=== PATIENT | male | born 1980 | race Caucasian/White ===

== ENCOUNTER 2017-09-28 18:54 | Emergency (ER) | payer MEDICAID ==
[~2017-09-28] VITALS: Ht 180.3 cm; Wt 127.0 kg
[2017-09-28 19:25] VITALS: Ht 180.3 cm; Wt 127.0 kg
[2017-09-28] MEDS ORDERED: BACLOFEN10 MG PO (19:26)
[2017-09-28] MEDS ORDERED: PERCOCET 10/3251 TA1 PO (19:27)
[2017-09-28 19:44] LABS: APPEARANCE CLEAR (CLEAR); BILIRUBIN 1+ (NEGATIVE); COLOR YELLOW (YELLOW); GLUCOSE NEGATIVE (NEGATIVE); KETONE NEGATIVE (NEGATIVE); NITRITE NEGATIVE (NEGATIVE); PROTEIN NEGATIVE (NEGATIVE); SPECIFIC GRAVITY 1.015 (1.005-1.020)
[2017-09-28 19:46] LABS: RED CELLS - URINE 0-5 /hpf (0-5); WHITE CELLS - URINE 0-5 /hpf (0-5)
[2017-09-28 19:47] LABS: BACTERIA FEW /hpf (NONE SEEN)
[2017-09-28 20:16] LABS: BASOPHILS 0.6 % (0-2); EOSINOPHILS 3.1 % (0-7); HEMATOCRIT 42.5 % (42.0-54.0); HEMOGLOBIN 14.4 g/dL (13.5-17.5); IMMATURE GRANULOCYTES 0.1 % (0-5); LYMPHOCYTES 27.5 % (15-50); MCH 29.4 pg (26.0-34.0); MCHC 33.9 g/dL (31.0-37.0); MCV 86.9 fL (80.0-100.0); MEAN PLATELET VOLUME 9.6 fL (7.4-10.4); MONOCYTES 7.2 % (2-11); NEUTROPHILS 61.5 % (40-80); PLATELET COUNT 274 10x3/uL (130-400); RBC 4.89 10x6/uL (4.20-6.10); RDW 12.3 % (11.5-14.5); WBC 6.7 10x3/uL (4.8-10.8)
[2017-09-28 20:31] LABS: ALBUMIN 3.6 g/dL (3.4-5.0); ALKALINE PHOSPHATASE 65 U/L (46-116); ALT (SGPT) 41 U/L (10-68); BILIRUBIN - TOTAL 0.37 mg/dL (0.2-1.3); CALC OSMOLALITY 284 mosm/kg (275-300); CALCIUM 9.1 mg/dL (8.5-10.1); CARBON DIOXIDE 33.1 mmol/L (21.0-32.0); CHLORIDE - SERUM 101 mmol/L (98-107); CREATININE - SERUM 1.1 mg/dL (0.6-1.3); LIPASE 178 U/L (73-393); POTASSIUM - SERUM 3.7 mmol/L (3.5-5.1); PROTEIN - SERUM 7.3 g/dL (6.4-8.2); SODIUM 141 mmol/L (136-145); UREA NITROGEN 16 mg/dL (7-18); eGFR NON AFRICAN AMERICAN 80 mL/min (90-120)
[2017-09-28 20:32] LABS: GLUCOSE 150 mg/dL (74-106)
[2017-09-28] MEDS ORDERED: FLAGYL500 MG PO (22:00)
[2017-09-28] MEDS ORDERED: NORCO 7.5/325 T1 TA1 PO (22:00)
[2017-09-28 23:04] VITALS: BP 123/87
== END 2017-09-28 23:40 | disposition home or self-care (01) ==
LOC: D.ER 18:54
PROVIDERS: Emergency Medicine
DX: K57.92 Diverticulitis of intestine, part unspecified, without perforation or abscess without bleeding (principal)

== ENCOUNTER 2018-01-30 20:39 | Emergency (ER) | payer MEDICAID ==
[~2018-01-30] VITALS: Ht 180.3 cm; Wt 130.0 kg
[~2018-01-30 20:39] MED LIST: BACLOFEN10 MG PO; FLAGYL500 MG PO; NORCO 7.5/325 T1 TA1 PO; PERCOCET 10/3251 TA1 PO
[2018-01-30 21:09] VITALS: Ht 180.3 cm; Wt 130.0 kg
[2018-01-30 21:43] LABS: BASOPHILS 0.6 % (0-2); EOSINOPHILS 6.1 % (0-7); HEMATOCRIT 42.1 % (42.0-54.0); HEMOGLOBIN 14.2 g/dL (13.5-17.5); IMMATURE GRANULOCYTES 0.3 % (0-5); LYMPHOCYTES 38.1 % (15-50); MCH 29.4 pg (26.0-34.0); MCHC 33.7 g/dL (31.0-37.0); MCV 87.2 fL (80.0-100.0); MEAN PLATELET VOLUME 9.7 fL (7.4-10.4); MONOCYTES 5.8 % (2-11); NEUTROPHILS 49.1 % (40-80); PLATELET COUNT 288 10x3/uL (130-400); RBC 4.83 10x6/uL (4.20-6.10); RDW 12.5 % (11.5-14.5); WBC 7.2 10x3/uL (4.8-10.8)
[2018-01-30 21:45] LABS: APPEARANCE CLEAR (CLEAR); BILIRUBIN NEGATIVE (NEGATIVE); COLOR YELLOW (YELLOW); EPITHELIAL CELLS NSEEN /hpf (0-5); GLUCOSE 1000 mg/dL (NEGATIVE); KETONE NEGATIVE (NEGATIVE); NITRITE NEGATIVE (NEGATIVE); PROTEIN NEGATIVE (NEGATIVE); RED CELLS - URINE NONE SEEN /hpf (0-5); SPECIFIC GRAVITY 1.015 (1.005-1.020); UROBILINOGEN NORMAL (NORMAL); WHITE CELLS - URINE NSEEN /hpf (0-5)
[2018-01-30 22:59] LABS: ALBUMIN 3.5 g/dL (3.4-5.0); ALKALINE PHOSPHATASE 61 U/L (46-116); ALT (SGPT) 38 U/L (10-68); AMYLASE - SERUM 24 U/L (25-115); BILIRUBIN - TOTAL 0.21 mg/dL (0.2-1.3); CALC OSMOLALITY 282 mosm/kg (275-300); CALCIUM 9.2 mg/dL (8.5-10.1); CARBON DIOXIDE 30.9 mmol/L (21.0-32.0); CHLORIDE - SERUM 103 mmol/L (98-107); CREATININE - SERUM 0.8 mg/dL (0.6-1.3); GLUCOSE 197 mg/dL (74-106); LIPASE 210 U/L (73-393); POTASSIUM - SERUM 3.8 mmol/L (3.5-5.1); PROTEIN - SERUM 7.6 g/dL (6.4-8.2); SODIUM 140 mmol/L (136-145); UREA NITROGEN 11 mg/dL (7-18); eGFR NON AFRICAN AMERICAN > 90 mL/min (90-120)
[2018-01-30 23:08] LABS: TROPONIN-I < 0.017 ng/mL (0.000-0.060)
[2018-01-30] MEDS ORDERED: LEVOFLOXACIN500 MG PO (23:45)
[2018-01-30] MEDS ORDERED: ZOFRAN4 MG PO (23:45)
[2018-01-30] MEDS ORDERED: HYDROCODON-ACE1 EAC7 PO (23:45)
[2018-01-31 00:41] VITALS: BP 119/78
== END 2018-01-31 00:42 | disposition home or self-care (01) ==
LOC: D.ER 20:39
PROVIDERS: Family Medicine
DX: R10.9 Unspecified abdominal pain (principal); R73.9 Hyperglycemia, unspecified; K57.32 Diverticulitis of large intestine without perforation or abscess without bleeding; M54.5 Low back pain; F17.200 Nicotine dependence, unspecified, uncomplicated

== ENCOUNTER 2018-09-27 09:50 | Emergency (ER) | payer MEDICAID ==
[~2018-09-27] VITALS: Ht 180.3 cm; Wt 125.0 kg
[~2018-09-27 09:50] MED LIST changes: +HYDROCODON-ACE1 EAC7 PO; +LEVOFLOXACIN500 MG PO; +ZOFRAN4 MG PO
[2018-09-27 09:54] VITALS: Ht 180.3 cm; Wt 125.0 kg
[2018-09-27 10:18] LABS: EOSINOPHILS 2.5 % (0-7); HEMATOCRIT 44.1 % (42.0-54.0); HEMOGLOBIN 15.4 g/dL (13.5-17.5); IMMATURE GRANULOCYTES 0.3 % (0-5); LYMPHOCYTES 30.5 % (15-50); MCH 29.2 pg (26.0-34.0); MCHC 34.9 g/dL (31.0-37.0); MCV 83.7 fL (80.0-100.0); MEAN PLATELET VOLUME 9.3 fL (7.4-10.4); NEUTROPHILS 60.7 % (40-80); PLATELET COUNT 282 10x3/uL (130-400); RBC 5.27 10x6/uL (4.20-6.10); RDW 12.4 % (11.5-14.5)
[2018-09-27 10:39] LABS: ALBUMIN 3.9 g/dL (3.4-5.0); ALKALINE PHOSPHATASE 76 U/L (46-116); ALT (SGPT) 30 U/L (10-68); BILIRUBIN - TOTAL 0.52 mg/dL (0.2-1.3); CALC OSMOLALITY 273 mosm/kg (275-300); CALCIUM 9.1 mg/dL (8.5-10.1); CARBON DIOXIDE 25.9 mmol/L (21.0-32.0); CHLORIDE - SERUM 99 mmol/L (98-107); CREATININE - SERUM 0.9 mg/dL (0.6-1.3); GLUCOSE 191 mg/dL (74-106); POTASSIUM - SERUM 3.8 mmol/L (3.5-5.1); SODIUM 135 mmol/L (136-145); UREA NITROGEN 11 mg/dL (7-18); eGFR NON AFRICAN AMERICAN > 90 mL/min (90-120)
[2018-09-27 10:48] LABS: COLOR YELLOW (YELLOW)
[2018-09-27 10:49] LABS: APPEARANCE CLEAR (CLEAR); BACTERIA NONE SEEN /hpf (NONE SEEN); BILIRUBIN NEGATIVE (NEGATIVE); EPITHELIAL CELLS NSEEN /hpf (0-5); GLUCOSE NEGATIVE (NEGATIVE); KETONE NEGATIVE (NEGATIVE); NITRITE NEGATIVE (NEGATIVE); PROTEIN NEGATIVE (NEGATIVE); RED CELLS - URINE 0-5 /hpf (0-5); SPECIFIC GRAVITY 1.015 (1.005-1.020); UROBILINOGEN NORMAL (NORMAL); WHITE CELLS - URINE 0-5 /hpf (0-5)
[2018-09-27] MEDS ORDERED: VIBRAMYCIN 100100 MG PO (11:26)
[2018-09-27] MEDS ORDERED: HYDROCODON-ACE1 EA10 PO (11:26)
[2018-09-27 12:17] VITALS: BP 126/80
== END 2018-09-27 12:17 | disposition home or self-care (01) ==
LOC: D.ER 09:50
PROVIDERS: Emergency Medicine
DX: N45.1 Epididymitis (principal)

== ENCOUNTER 2020-07-23 11:02 | Emergency (ER) | payer OTHER, MEDICAID ==
[~2020-07-23] VITALS: Ht 180.3 cm; Wt 121.8 kg
[~2020-07-23 11:02] MED LIST changes: +BAYER CHEWABLE81 MG; +CHOLESTEROL; +GLUCOPHAGE500 MG PO; +HYDROCODON-ACE1 EA10 PO; +LIPITOR40 MG PO; +PLAVIX75 MG PO; +PROTONIX20 MG; +VIBRAMYCIN 100100 MG PO; +[UNRECOGNIZED DRUG - REMARK]
[2020-07-23 11:16] VITALS: BP 162/118; Ht 180.3 cm; Wt 121.8 kg
[2020-07-23 11:45] LABS: BASOPHILS 0.5 % (0-2); EOSINOPHILS 0.5 % (0-7); HEMATOCRIT 45.3 % (42.0-54.0); HEMOGLOBIN 15.4 g/dL (13.5-17.5); MCH 28.7 pg (26.0-34.0); MCV 84.3 fL (80.0-100.0); MEAN PLATELET VOLUME 7.5 fL (7.4-10.4); MONOCYTES 2.4 % (2-11); NEUTROPHILS 84.6 % (40-80); RBC 5.37 10x6/uL (4.20-6.10); RDW 13.1 % (11.5-14.5); WBC 10.6 10x3/uL (4.8-10.8)
[2020-07-23 11:54] LABS: PLATELET COUNT 310 10x3/uL (130-400)
[2020-07-23 11:59] LABS: ALBUMIN 4.2 g/dL (3.4-5.0); ALKALINE PHOSPHATASE 91 U/L (30-120); ALT (SGPT) 25 U/L (10-68); BILIRUBIN - TOTAL 0.41 mg/dL (0.2-1.3); CALC OSMOLALITY 283 mosm/kg (275-300); CALCIUM 8.9 mg/dL (8.5-10.1); CARBON DIOXIDE 25.2 mmol/L (21.0-32.0); CHLORIDE - SERUM 96 mmol/L (98-107); CREATININE - SERUM 1.1 mg/dL (0.6-1.3); SODIUM 131 mmol/L (136-145); UREA NITROGEN 18 mg/dL (7-18); eGFR NON AFRICAN AMERICAN 79 mL/min (90-120)
[2020-07-23 12:03] LABS: INR 1.07 (0.85-1.17); PROTIME 12.8 SECONDS (11.6-15.0)
[2020-07-23 12:04] LABS: D-DIMER-QUANTITATIVE 0.29 ug/mLFEU (0.20-0.54)
[2020-07-23 12:07] LABS: GLUCOSE 445 mg/dL (74-106)
[2020-07-23 12:24] LABS: APTT 22.7 SECONDS (22.8-39.4)
[2020-07-23 12:58] LABS: BILIRUBIN NEGATIVE (NEGATIVE); KETONE NEGATIVE (NEGATIVE); NITRITE NEGATIVE (NEGATIVE); UROBILINOGEN NORMAL mg/dL (< 2)
== END 2020-07-23 17:00 | disposition home or self-care (01) ==
LOC: D.ER 11:02
PROVIDERS: Family Medicine
DX: M51.16 Intervertebral disc disorders with radiculopathy, lumbar region (principal); R73.9 Hyperglycemia, unspecified

== ENCOUNTER 2020-08-21 15:42 | Emergency (ER) | payer OTHER, MEDICAID ==
[~2020-08-21] VITALS: Ht 180.3 cm; Wt 118.2 kg
[2020-08-21 15:56] VITALS: Ht 180.3 cm; Wt 118.2 kg
[2020-08-21 20:33] LABS: BASOPHILS 1.5 % (0-2); EOSINOPHILS 1.9 % (0-7); HEMATOCRIT 41.8 % (42.0-54.0); HEMOGLOBIN 14.5 g/dL (13.5-17.5); LYMPHOCYTES 36.7 % (15-50); MCH 29.2 pg (26.0-34.0); MCHC 34.6 g/dL (31.0-37.0); MCV 84.4 fL (80.0-100.0); MEAN PLATELET VOLUME 7.9 fL (7.4-10.4); MONOCYTES 5.4 % (2-11); NEUTROPHILS 54.5 % (40-80); PLATELET COUNT 298 10x3/uL (130-400); RBC 4.96 10x6/uL (4.20-6.10); RDW 13.5 % (11.5-14.5); WBC 6.5 10x3/uL (4.8-10.8)
[2020-08-21 21:04] LABS: CALC OSMOLALITY 283 mosm/kg (275-300); CALCIUM 8.8 mg/dL (8.5-10.1); CARBON DIOXIDE 23.3 mmol/L (21.0-32.0); CHLORIDE - SERUM 102 mmol/L (98-107); CREATININE - SERUM 0.8 mg/dL (0.6-1.3); POTASSIUM - SERUM 3.7 mmol/L (3.5-5.1); SODIUM 137 mmol/L (136-145); UREA NITROGEN 17 mg/dL (7-18); eGFR NON AFRICAN AMERICAN > 90 mL/min (90-120)
[2020-08-21 21:05] LABS: GLUCOSE 250 mg/dL (74-106)
[2020-08-21 21:11] LABS: ALBUMIN 3.9 g/dL (3.4-5.0); ALKALINE PHOSPHATASE 81 U/L (30-120); ALT (SGPT) 41 U/L (10-68); BILIRUBIN - TOTAL 0.35 mg/dL (0.2-1.3); LIPASE 114 U/L (73-393); PROTEIN - SERUM 7.5 g/dL (6.4-8.2)
[2020-08-22 00:06] VITALS: BP 135/91
== END 2020-08-22 00:07 | disposition home or self-care (01) ==
LOC: D.ER 15:42
PROVIDERS: Family Medicine
DX: E11.9 Type 2 diabetes mellitus without complications (principal); R10.9 Unspecified abdominal pain; M25.532 Pain in left wrist; Z79.84 Long term (current) use of oral hypoglycemic drugs